=== PATIENT | male | born 1995 | race Two or more races ===

== ENCOUNTER 2024-06-01 15:36 | Emergency (ER) | payer MEDICAID, SELFPAY ==
[2024-06-01 15:37] VITALS: BMI 37.6
[2024-06-01 15:45] VITALS: BP 179/121; PULSE 78; RESP 18; TEMP 37.2; O2SAT 98; BMI 37.0
[2024-06-01 15:48] VITALS: BP 197/144
--- NOTE | 2024-06-01 15:52 | XR_ITS ---
Exam: Chest PA, lateral 2 views Technique: Chest upright PA lateral 2 views Date and time of exam: 06/01/2024, 4:03 PM INDICATION: Chest pain Findings: Normal heart size. No mediastinal adenopathy. No acute fracture No pulmonary edema or pneumonia. Impression: No active disease.
--- NOTE | 2024-06-01 15:52 | EKG_ITS ---
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
--- NOTE | 2024-06-01 15:53 | PD.EDRME ---
Rapid Medical Screening Exam RME Arrival date/time: 06/01/24 15:36 29-year-old male presents to the emergency department today with complaints of hypertension and chest pressure Chief Complaint: Arrhythmia/Palpitations Time Seen by Provider: 06/01/24 15:45 Vital signs: Vital Signs Temperature 98.9 F 06/01/24 15:45 Pulse Rate 78 06/01/24 15:45 Respiratory Rate 18 06/01/24 15:45 Blood Pressure 179/121 H 06/01/24 15:45 Pulse Oximetry (%) 98 06/01/24 15:45 Oxygen Delivery Method Room Air 06/01/24 15:45
[2024-06-01 16:01] VITALS: BP 197/144; PULSE 78
[2024-06-01] MEDS: NIFEdipine 10 MG CAPSULE 20 MG PO (16:01)
[2024-06-01 16:17] LABS: Basophils # (Auto) 0.1 Thou/mm3 (0.0-0.2); Basophils % (Auto) 1 % (0-2.5); Eosinophils # (Auto) 0.1 Thou/mm3 (0.0-0.5); Eosinophils % (Auto) 1 % (0-10); Hematocrit 47.6 % (41.0-53.0); Hemoglobin 16.6 g/dL (13.5-16.0); Immature Granulocytes % (Auto) 1 % (0-0); Immature Granulocytes Auto 0.04 Thou/mm3 (0.00-0.00); Lymphocytes # (Auto) 3.5 Thou/mm3 (1.0-4.8); Lymphocytes % (Auto) 42 % (10-50); Mean Corpuscular HGB Conc 34.9 g/dl (31.0-37.0); Mean Corpuscular Hemoglobin 30.2 pg (25.0-35.0); Mean Corpuscular Volume 87 fL (80-100); Monocytes # (Auto) 0.6 Thou/mm3 (0.0-0.8); Monocytes % (Auto) 7 % (0-12); Neutrophils % (Auto) 48 % (37-80); Nucleated Red Blood Cell % 0 /100 WBC (0); Platelet Count 310 Thou/mm3 (140-440); RDW Standard Deviation 38.1 fL (35.1-43.9); White Blood Count 8.3 Thou/mm3 (3.8-10.6)
--- NOTE | 2024-06-01 16:23 | PD.EDADULT ---
ED General RME/HPI General Chief complaint: Arrhythmia/Palpitations Stated complaint: HTN, Palpitations Time Seen by Provider: 06/01/24 15:45 Arrival date/time: 06/01/24 15:36 CC: Chest pain Limitations: no limitations RME / HPI RME / HPI narrative: DR. GONZALEZ MAIN ED EVALUATION: 29 year old male with no past medical history presents to the Emergency Department with complaint of hypertension and palpitations onset 1 week. He denies any chest pain or other symptoms at this time. Patient denies any tobacco, alcohol, or substance use. Related Data Previous Rx's ?Medication ?Instructions ?Recorded amlodipine 5 mg tablet 5 mg PO QDAY #30 tabs 06/01/24 Allergies Allergy/AdvReac Type Severity Reaction Status Date / Time No Known Allergies Allergy Verified 06/01/24 15:37 Review of Systems Review of Systems Systems Reviewed: All systems reviewed, normal except as documented Narrative Review of Systems: GEN: No fever, no chills, no weight loss EYES: No discharge, no visual changes, no pain HEENT: No ear pain, no congestion, no sore throat PULM: No shortness of breath, no cough, no congestion CV: No chest pain, no dyspnea on exertion, + palpitations GI: No nausea, no vomiting, no diarrhea, no pain, no constipation : No frequency, no urgency and no dysuria MUSC/SKEL: No joint pain, no back pain SKIN: No rash PSYCH: No hallucinations, no depression HEME/LYMPH: No easy bleeding or bruising tendencies NEURO: No weakness, no headache Past Medical History Social History SMOKING STATUS: Never smoker SUBSTANCE USE: does not use ALCOHOL: Never ED Exam General Limitations: Present no limitations General appearance: Present alert and in no apparent distress Head Head exam: Present atraumatic, normocephalic and normal inspection Eye Eye exam: Present normal appearance, PERRL and EOMI ENT ENT exam: Present normal exam, normal oropharynx and mucous membranes moist Neck Neck exam: Present normal inspection, full ROM and trachea midline Chest Chest inspection: Present normal inspection and symmetric chest wall rise Respiratory Respiratory exam: Present normal lung sounds bilaterally Cardiovascular Cardiovascular exam: Present regular rate, normal rhythm and normal heart sounds Abdominal Exam Abdominal exam: Present soft and normal bowel sounds Extremities Exam Extremities exam: Present normal inspection and full ROM Back Exam Back exam: Present normal inspection and full ROM Neurological Exam Neurological exam: Present alert, oriented X3 and CN II-XII intact Psychiatric Psychiatric exam: Present normal affect and normal mood Skin Skin exam: Present warm, dry, intact and normal color Course Quality Measures none Orders Category Date Time Status EKG (ED ONLY) *Do not use* NOW Care 06/01/24 15:52 Completed EKG (ED Only) Stat Exams 06/01/24 15:52 Draft XR chest 2V Stat Exams 06/01/24 15:52 Completed B-Type Natriuretic Peptide Stat Lab 06/01/24 16:08 Completed CBC Stat Lab 06/01/24 16:08 Completed Comprehensive Metabolic Panel Stat Lab 06/01/24 16:08 Completed Drug Screen,Urine Stat Lab 06/01/24 17:38 Completed Free T4 (Free Thyroxine) Stat Lab 06/01/24 16:08 Completed Magnesium Stat Lab 06/01/24 16:08 Completed TSH [Thyroid Stimulating Hormone] Stat Lab 06/01/24 16:08 Completed Troponin I Stat Lab 06/01/24 16:08 Completed Urinalysis Stat Lab 06/01/24 17:38 Completed NIFEdipine [Procardia] Med 06/01/24 15:52 Discontinued 20 mg PO X1 ONE amLODIPine BESYLATE [Norvasc] Med 06/01/24 19:18 Discontinued 5 mg PO X1 ONE Vital Signs Vital signs: Vital Signs Temperature 98.9 F 06/01/24 15:45 Pulse Rate 78 06/01/24 15:45 Respiratory Rate 18 06/01/24 15:45 Blood Pressure 179/121 H 06/01/24 15:45 Pulse Oximetry (%) 98 06/01/24 15:45 Oxygen Delivery Method Room Air 06/01/24 15:45 [facility] Patient data External records reviewed:: None (no previous visits) Clinical information provided by:: patient Social determinants that could affect healthcare access:: none Patient has the following chronic illnesses:: Denies any PMHx, surgeries, daily medications, or known allergies. How is presenting disease/condition affected by chronic disease/condition?: no chronic disease Evaluation data The following diagnostics were reviewed and interpreted by me:: lab results, radiology exam(s) and EKG tracing(s) Lab and/or radiology exams considered but not ordered:: none Interpretation Summary: EKG performed approximately 1615 shows a ventricular rate of 80 AR interval 161 QRS of 105 QTc of 395 the sinus rhythm. Chest x-ray as interpreted by me read by radiology as negative for any acute finding RADIOLOGY Procedure(s): XR chest 2V Accession Number(s): [id number] cc: Kobe (WEAPONS SPECIALIST),Ignacio WEAPONS SPECIALIST; Long Joaquin MD~ Exam: Chest PA, lateral 2 views Technique: Chest upright PA lateral 2 views Date and time of exam: 06/01/2024, 4:03 PM INDICATION: Chest pain Findings: Normal heart size. No mediastinal adenopathy. No acute fracture No pulmonary edema or pneumonia. Impression: No active disease. Dictated By: Long Joaquin MD Medications Medications considered but not ordered:: none Medication administrations:: Medication Administration History Discontinued Medications Amlodipine Besylate (Amlodipine Besylate 5 Mg Tablet) 5 mg PO X1 ONE Stop: 06/01/24 19:19 Last Admin: 06/01/24 19:25 Dose: Not Given Documented By: CVL Non-Admin Reason: Cancelled by Provider Nifedipine (Nifedipine 10 Mg Capsule) 20 mg PO X1 ONE Stop: 06/01/24 15:53 Last Admin: 06/01/24 16:01 Dose: 20 mg Documented By: as above Consultations Consultation(s) initiated? (list below): Yes Consultation #1 (Physician, Specialty, Details): Discussed test HPI, PMHx, lab, radiology results and/or management with Dr. Gleason. Recommended starting the patient on amlodipine. Time: 19:17 Diagnosis Differential Diagnosis ED Complaint MDM: dehydration,hypertensive emergency/urgency,palpitations, proteinuria, .. Most likely diagnosis given after review of the tests above:: Palpitations, protein in urine, hypertension Admission Indicated Admission indicated?: not indicated Explain why admission is indicated or not indicated:: Patient has no emergent abnormalities on his studies and can be managed on an outpatient basis. Admission Request Was there a request for admission?: No Disposition Plan Disposition Plan: Discharge Discharge Attestation Discharge Attestation: The patient and all family members were given an opportunity to ask questions and understood the discharge instructions. Discharge instructions specifically effects, indications for sooner follow up or return to the emergency department, and the expected course of current diagnosis. Patient condition: Stable Medical Decision Making MDM Narrative MDM Narrative: I, Brandy Zavala, am scribing for and in the presence of Dr. Gonzalez. Differential Diagnosis Differential Diagnosis: dehydration,hypertensive emergency/urgency,palpitations, proteinuria, .. Lab Data 06/01/24 16:08 06/01/24 16:08 Labs: Lab Results 06/01/24 06/01/24 Range/Units 16:08 17:38 WBC 8.3 (3.8-10.6) Thou/mm3 RBC 5.50 (4.50-5.90) Miln/mm3 Hgb 16.6 H (13.5-16.0) g/dL Hct 47.6 (41.0-53.0) % MCV 87 (80-100) fL MCH 30.2 (25.0-35.0) pg MCHC 34.9 (31.0-37.0) g/dl RDW Std Deviation 38.1 (35.1-43.9) fL Plt Count 310 (140-440) Thou/mm3 Neut % (Auto) 48 (37-80) % Lymph % (Auto) 42 (10-50) % [place] % (Auto) 7 (0-12) % Eos % (Auto) 1 (0-10) % Baso % (Auto) 1 (0-2.5) % Neut # (Auto) 4.0 (1.8-7.7) Thou/mm3 Lymph # (Auto) 3.5 (1.0-4.8) Thou/mm3 [place] # (Auto) 0.6 (0.0-0.8) Thou/mm3 Eos # (Auto) 0.1 (0.0-0.5) Thou/mm3 Baso # (Auto) 0.1 (0.0-0.2) Thou/mm3 Immature Gran # (Auto) 0.04 H (0.00-0.00) Thou/mm3 Absolute Nucleated RBC 0.00 (0.00-0.00) Thou/mm3 Immature Gran % 1 H (0-0) % Nucleated RBC % 0 (0) /100 WBC Sodium 136 (136-145) mMol/L Potassium 4.4 (3.4-5.1) mMol/L Chloride 100 (98-107) mMol/L Carbon Dioxide 30.0 (20.0-31.0) mMol/L Anion Gap 6 L (7-16) BUN 11 (9-23) mg/dL Creatinine 0.9 (0.6-1.3) mg/dL Estim Creat Clear Calc 164.6 (>60) mL/min eGFR > 60 (60 - ) See Note BUN/Creatinine Ratio 12 (12-20) Ratio Glucose 250 H (74-106) mg/dL Calculated Osmolality 279 (275-295) Calcium 9.7 (8.3-10.6) mg/dL Corrected Calcium 9.7 (8.5-10.1) mg/dL Magnesium 2.1 (1.6-2.6) mg/dL Total Bilirubin 0.7 (0.3-1.2) mg/dL AST 95 H (0-34) U/L ALT 145 H (10-49) U/L Alkaline Phosphatase 134 H (46-116) U/L Troponin I 0.023 (0.0-0.045) ng/mL B-Natriuretic Peptide < 20 (0-100) pg/mL Total Protein 7.4 (5.7-8.2) gm/dL Albumin 4.5 (3.5-5.0) gm/dL Globulin 2.9 (2.3-3.5) gm/dL Albumin/Globulin Ratio 1.6 (1.2-2.2) TSH 1.92 (0.55-4.78) uIU/mL Free T4 1.32 (0.89-1.76) ng/dL Ur Collection Type Clean Catch Urine Color Lt-Yellow (Lt Yel-Yel) Urine Clarity Clear (Clear/Hazy) Urine pH 6.5 (5.0-7.0) Ur Specific [place] 1.026 (1.001-1.035) Urine Protein Negative (Neg - Trace) Urine Glucose (UA) 4+ A (Negative) Urine Ketones Trace (Negative) Urine Blood Negative (Negative) Urine Nitrite Negative (Negative) Urine Bilirubin Negative (Negative) Urine Urobilinogen (Auto) Negative (0.0-1.0) mg/dL Ur Leukocyte Esterase Negative (Negative) Urine RBC 2 (0-3) /hpf Urine WBC < 1 (0-5) /hpf Ur Squamous Epith Cells 1 (0-5) /hpf Urine Bacteria Rare (None) Urine Opiates Screen Negative (Negative) Urine Fentanyl Screen Negative (Negative) Ur Barbiturates Screen Negative (Negative) U Amphetamin/Meth Scrn Negative (Negative) U Benzodiazepines Scrn Negative (Negative) U Cocaine Metab Screen Negative (Negative) U Marijuana (THC) Screen Negative (Negative) Discharge Plan Plan Patient Disposition: HOME (Self Care) Patient condition on transfer: Stable Prescriptions/Referrals Prescriptions/Med Rec: New amlodipine 5 mg tablet 5 mg PO QDAY Qty: 30 1RF Referrals: No Primary/Family,Physician [Primary Care Provider] - In 1 week Problem List Clinical Impression: Palpitations, Protein in urine, Hypertension Patient/Caregiver Discharge Instructions Education Materials: Blood Pressure Check Steps, ED Palpitations, ED Proteinuria Additional Instructions: 1. Today there was an incidental finding in your urinalysis. Mildly elevated protein and glucose. You will need to follow-up with your primary care physician in the next 1 week. 2. If you do not have a primary care physician then you can follow-up at the resident clinic. Please call for an appointment to get follow-up in the next in 1 week. 3. Failure to follow-up will lead to missed or delayed diagnosis. Today your blood pressure was slightly elevated and that can be addressed as well. Please take your blood pressure every day at the same time and write it down and bring it to your appointment. 4. I spoke to the hospitalist Dr. Gleason, the hospitalist on-call and at this time he request that you start amlodipine. 5. Return to the emergency department before your appointment if you are having chest pain, shortness of breath, you are feeling worse, or any other concerns[place] [address] [id number] Hours:?Friday - Friday, 8 AM - 4:30 PM (Closed 12 PM - 1 PM) Contact Us:? Print Language: Spanish Stand Alone Forms: Lu Award Info., Patient Portal Info Letter
[2024-06-01 16:38] LABS: B-Type Natriuretic Peptide < 20 pg/mL (0-100)
[2024-06-01 16:46] LABS: Alanine Aminotransferase 145 U/L (10-49); Albumin, Serum 4.5 gm/dL (3.5-5.0); Albumin/Globulin Ratio 1.6 (1.2-2.2); Anion Gap 6 (7-16); Aspartate Amino Transferase 95 U/L (0-34); BUN/Creatinine Ratio 12 Ratio (12-20); Bilirubin,Total 0.7 mg/dL (0.3-1.2); Blood Urea Nitrogen 11 mg/dL (9-23); Calcium 9.7 mg/dL (8.3-10.6); Calcium (Corrected) 9.7 mg/dL (8.5-10.1); Chloride 100 mMol/L (98-107); Creatinine (Component) 0.9 mg/dL (0.6-1.3); Estimated Creatinine Clearance 164.6 mL/min (>60); Free T4 (Free Thyroxine) 1.32 ng/dL (0.89-1.76); Globulin 2.9 gm/dL (2.3-3.5); Glucose 250 mg/dL (74-106); Magnesium 2.1 mg/dL (1.6-2.6); Osmolality,Calculated 279 (275-295); Potassium 4.4 mMol/L (3.4-5.1); Sodium 136 mMol/L (136-145); Thyroid Stimulating Hormone 1.92 uIU/mL (0.55-4.78); Total Protein 7.4 gm/dL (5.7-8.2); Troponin I 0.023 ng/mL (0.0-0.045); eGFR > 60 See Note
[2024-06-01 16:57] LABS: Alkaline Phosphatase 134 U/L (46-116)
[2024-06-01 17:11] VITALS: BP 144/88; BP 147/94; PULSE 94
[2024-06-01 18:01] LABS: Bacteria,Urine Rare; Bilirubin,Urine Negative (Negative); Blood,Urine Negative (Negative); Clarity,Urine Clear (Clear/Hazy); Collection Type, Urine Clean Catch; Color,Urine Lt-Yellow (Lt Yel-Yel); Glucose, Urine 4+ (Negative); Ketones,Urine Trace (Negative); Leukocyte Esterase,Urine Negative (Negative); Nitrite,Urine Negative (Negative); PH,Urine 6.5 (5.0-7.0); Protein,Urine Negative (Neg - Trace); RBC,Urine 2 /hpf (0-3); Specific Gravity,Urine 1.026 (1.001-1.035); Squamous Epithelial Cell,Urine 1 /hpf (0-5); Urobilinogen,Urine Negative mg/dL (0.0-1.0); WBC,Urine < 1 /hpf (0-5)
[2024-06-01 18:10] LABS: Amphetamine/Methamp Scrn,U Negative (Negative); Barbiturate Screen,Urine Negative (Negative); Benzodiazepines Screen,Urine Negative (Negative); Benzoylecgonine Screen, Ur Negative (Negative); Fentanyl Screen,Urine Negative (Negative); Opiate Screen,Urine Negative (Negative); THC Screen,Urine Negative (Negative)
[2024-06-01 19:11] VITALS: BP 146/91; PULSE 94; RESP 16; TEMP 36.4; O2SAT 98
[2024-06-01 19:26] VITALS: BP 146/91; PULSE 93; RESP 16
== END 2024-06-01 19:26 | disposition home or self-care (01) ==
PROVIDERS: Nurse Practitioner Primary Care; Emergency Provider Emergency Medicine
DX: I10 Essential (primary) hypertension (principal); R00.2 Palpitations; R80.9 Proteinuria, unspecified; Z79.899 Other long term (current) drug therapy
CPT/HCPCS: 36415; 71046; 80053; 80307; 81001; 83735; 83880; 84439; 84443; 84484; 85025; 93005; 99283; A9270